=== PATIENT | male | born 1965 | race Caucasian/White ===

== ENCOUNTER 2018-09-07 11:06 | Emergency (ER) | payer OTHER ==
--- NOTE | 2018-09-07 11:08 | PDOC ---
History of Present Illness - General Chief Complaint: Back Pain Stated Complaint: MID BACK PAIN History Source: Patient Exam Limitations: No Limitations - History of Present Illness Initial Comments: 09/07/18 11:10 53 YOM with h/o HTN, chronic back pain, retinal detachments presenting with acute on chronic mid lower back pain x 4 days. Exacerbated by sitting up straight and movement/walking, now with difficulty getting up from bed/chair. With episodes of back pain, he gets shortness of breath, though not associated with chest pain, palpitations or syncope. denies radiation of pain or radicular sx down the lower extremities. a/w + tingling to left thigh. denies trauma or exertional activity has had chronic lower back pain x "long time," last had Xray and MRI imaging 1 year ago with PMD, told unremarkable and has been undergoing PT and ROM exercises. at home, he has tried diclofenac cream, lidoderm patch, and "muscle relaxer" and NSAID without relief. last took Advil last night, with minimal relief.. Denies fever, chills, chest pain, palpitation, dizziness, focal weakness, N, V , D, abdominal pain, bladder and bowel problems, urinary retention/incontinence , leg swelling, No new changes in medications. Denies spinal or recent surgical procedures. denies weight loss, appetite loss, night sweats. 09/07/18 12:13 09/07/18 12:19 09/07/18 14:18 Past History - Past Medical History Allergies/Adverse Reactions: Allergies Allergy/AdvReac Type Severity Reaction Status Date / Time No Known Allergies Allergy Unverified 09/07/18 11:07 Home Medications: Ambulatory Orders Amlodipine Besylate/Benazepril [Amlodipine-Benazepril 10-20 mg] 1 tab PO DAILY 09/07/18 Oxycodone HCl 10 mg PO QID PRN #12 tablet MDD 4 09/07/18 Review of Systems - Review of Systems Able to Perform ROS?: Yes Comments:: 09/07/18 11:08 Constitutional: no fevers or chills. no anorexia, no weight loss or night sweats. HEENT: no headache or dizziness Resp: +shortness of breath Chest: no palpitations or chest pain Abdomen: no abdominal pain, nausea, vomiting, diarrhea. Genitorurinary: no urinary retention or incontinence, no dysuria, urgency or frequency. no hematuria MUSCULOSKELETAL: No joint pain and swelling. No muscle pain/arthralgias. Back: +back pain SKIN: no redness or skin changes, no discharge, no rash. No wounds. Hematologic: no easy bruising/bleeding. NEUROLOGIC: No weakness, numbness. +tingling. No headache or dizziness Allergic/Immunologic: no allergies All other systems reviewed and negative, or as documented in HPI. 09/07/18 12:18 09/07/18 14:19 *Physical Exam - Physical Exam Comments: 09/07/18 11:10 General: Well appearing, awake and alert, NAD. HEENT: NCAT, PERRL, EOMI, clear conjunctiva, anicteric, moist mucus membranes, clear oropharynx, no oral lesions.. Neck: neck supple, FROM Resp: CTAB, normal and even respirations, no respiratory distress CVS: RRR, no murmurs, 2+ peripheral pulses throughout, no peripheral edema Abdomen: soft, NTND, no peritoneal signs. Back: ROM limited 2/2 pain. +lower thoracic and upper lumbar TTP midline, no paravertebral TTP. MSK: no edema, KELLER x4, normal bulk and tone. soft compartments. no calf tenderness. 5/5 plantar and dorsiflexion. SILT in T12-S1 distribution. no laxity at knee jt. 2+ DP pulses bilaterally. Neg SLR bilaterally. Neuro: alert, no focal neuro deficits. Psych: calm and cooperative Skin: warm and well perfused, cap refill <2 sec, normal color 09/07/18 12:21 Medical Decision Making - Medical Decision Making 09/07/18 12:22 Vital Signs Temp Pulse Resp BP Pulse Ox 98.7 F 82 18 148/93 100 09/07/18 11:07 09/07/18 11:07 09/07/18 11:07 09/07/18 11:07 09/07/18 11:07 DDx back pain: back strain, lumbago, sciatica, radiculopathy, spinal stenosis. Muscle spasm. Lumbar radiculopathy. Clinically doubt based on exam and clinical history: cord compression or cauda equina, with low suspicion and NO red flag sx such as malignancy, weight loss, trauma, fevers, IVDU, lumbar/spinal procedures, bowel and bladder incontinence/ retention, urinary sx, neurologic deficits or changes. ED course: analgesia with percocet, with no relief from traditional methods no fx, doubt injury CT T-L spine to check for degenerative disease, mass lesion, or subtle fx, with severe back pain. CT T spine no acute pathology, beam hardening artifacts, no bony abnormalities, ossification of rt paracentral region of the soft tissues. CT L spine with no acute bony abnormalities or compressions, however, disc herniations of L3-L5. 09/07/18 14:10 - on reassessment, feels much improved, able to walk/ambulate and range his back discussed results, pt aware of findings. no neuro deficits, no s/s to suggest cauda equina or cord pathology, defer further imaging and will likely need outpatient MRI imaging ortho referrals given. ROM exercises, pain control, proper rest and physical activity as tolerated f/u PMD Dr J Luis GREER in stable condition, return precautions provided. Will discharge patient with a short course of opiates. Went over the risks of the medication. Advised patient to not mix with other products containing acetaminophen, to not combine with alcohol, or other illicit drugs, to not drive or operate machinery, and to refrain from any activity that will require complete attention while taking this medication. 09/07/18 14:19 09/07/18 14:19 *DC/Admit/Observation/Transfer Diagnosis at time of Disposition: Back pain Qualifiers: Back pain location: low back pain Chronicity: unspecified Back pain laterality : unspecified Sciatica presence: without sciatica Qualified Code(s): M54.5 - Low back pain - Discharge Dispostion Disposition: HOME Condition at time of disposition: Stable Decision to Admit order: No - Prescriptions Prescriptions: Oxycodone HCl 10 mg PO QID PRN #12 tablet MDD 4 PRN Reason: Severe Pain - Referrals Referrals: Ginna Dietz [Primary Care Provider] - Javid Klein MD [Staff Physician] - Justo Blackman MD [Staff Physician] - - Patient Instructions Printed Discharge Instructions: DI for Low Back Pain Additional Instructions: 1) Please follow-up with your primary care doctor in the next 1-2 days. Please call tomorrow for for any urgent issues. 2) You were given a copy of the tests performed today. Please bring the results with you and review them with your primary care doctor. Your laboratory / imaging results were remarkable for disc herniations in your lower lumbar spine as well as no acute findings on the thoracic spine, there are beam hardening artifacts of unclear etiology which will need to be checked and followed up 3) If you have any worsening of symptoms or any other concerns please return to the ED immediately. Return if worsening symptoms including fevers, headache, vomiting, visual or hearing disturbances, abdominal pain, chest pain, shortness of breath, syncope, dehydration, inability to take things by mouth/vomiting, altered mental status, neurologic changes, numbness, tingling, weakness, falls or gait instability or worsening concerning symptoms. 4) Please continue taking your home medications as directed. your medications on discharge include the following. side effects may include upset stomach, abdominal pain, vomiting, or diarrhea. do not drink alcohol with your medications. Please take IBUPROFEN (aka MOTRIN, ADVIL, ALEVE) 400 mg and/or ACETAMINOPHEN ( aka Tylenol) 650-975 mg every 6 hours, as needed, for pain. Please do not take these medications if you have a bleeding disorder, stomach or GI ulcer problems or liver disease. Please take one tablet of OXYCODONE every 6 hours, as needed for SEVERE pain. Please do not take this medication unless you absolutely need it, it is very addictive. Please do not drive, operate heavy machinery or make important decisions while on this medication, it can cloud your judgement. orthopedic referrals also provided. - Post Discharge Activity Forms/Work/School Notes: Back to Work
[2018-09-07 11:27] VITALS: BP 148/93; PULSE 82; TEMP 98.7; BMI 31.5
== END 2018-09-07 14:20 | disposition home or self-care (01) ==
LOC: FER 11:06
DX: M54.5 Low back pain (principal); G89.29 Other chronic pain
CPT/HCPCS: 72128-TC; 72131-TC; 81003; 99282-25

== ENCOUNTER 2018-09-18 21:53 | Emergency (ER) | payer OTHER ==
[2018-09-18 21:59] VITALS: BP 135/90; PULSE 77; TEMP 97.5; BMI 31.5
[2018-09-18] MEDS ORDERED: ACETAMINOPHEN 500 MG TABLET (FP) ONE (22:08)
[2018-09-18] MEDS ORDERED: ACETAMINOPHEN 500 MG TABLET (FP) PO ONE (22:21)
--- NOTE | 2018-09-18 22:23 | PDOC ---
Documentation entered by Ange Ng SCRIBE, acting as scribe for Elda Finnegan MD. Elda Finnegan MD: This documentation has been prepared by the Berenice cross Brenda, SCRIBE, under my direction and personally reviewed by me in its entirety. I confirm that the documentation accurately reflects all work , treatment, procedures, and medical decision making performed by me. History of Present Illness - General Chief Complaint: Burn Stated Complaint: SUNBURN SINCE TUESDAY History Source: Patient Exam Limitations: No Limitations - History of Present Illness Initial Comments: 09/18/18 22:28 The patient is a 53 year old male, with a significant PMH of HTN, chronic back pain and retinal detachments who presents to the emergency department with complaints of a sunburn on chest. As per patient, he was at the pool on Tuesday (09/16/18), when he was under the sun during the day. He says that he was fine until Tuesday night and upon waking up Tuesday morning, he felt needles and pain on the skin of his chest and some parts of his abdomen. The patient denies chest pain, shortness of breath, headache and dizziness. Denies fever, chills, nausea, vomiting, diarrhea and constipation. Denies any urinary symptoms. PAST MEDICAL HISTORY: HTN, chronic back pain and retinal detachments PAST SURGICAL HISTORY: no significant history FAMILY HISTORY: no pertinent history SOCIAL HISTORY: Daily wine with meals and occasional whiskey. Pt lives with family and is employed. MEDICATIONS: reviewed ALLERGIES: As per nursing notes PCP: Ginna Dietz General: No fevers or chills, no weakness, no weight loss HEENT: No change in vision. No sore throat,. No ear pain CardioVascular: No chest pain or shortness of breath Respiratory:No cough, or wheezing. Gastrointestinal: no nausea, vomiting, diarrhea or constipation, No rectal bleeding Genitourinary: No dysuria, hematuria, or frequency Musculoskeletal: No joint or muscle pain or swelling Neurologic: No headache, vertigo, dizziness or loss of consciousness Psychiatric: nor depression Skin: (+) Sunburn on chest and right side of abdomen. No rashes or easy bruising Endocrine: no increased thirst or abnormal weight change Allergic: no skin or latex allergy All other systems reviewed and normal General: Well-nourished well-developed individual, no acute distress HEENT: Throat: Normal, tonsils normal, no erythema or exudate Neck: Supple, no meningeal signs, no lymphadenopathy Eyes::Pupils equal reactive and round, extraocular motion intact Chest: Nontender to palpation Cardiac: S1-S2 normal, regular rate and rhythm, no murmurs rubs or gallops Respiratory: Lungs clear to auscultation bilateral Abdomen: Soft, nondistended, normal bowel sounds, nontender to palpation diffusely Extremities: Warm, dry, no cyanosis, clubbing, or edema Skin:(+)mild first degree sunburn to right chest (+)right side abdomen more affected than left. No blistering. Skin is intact. No rashes Neuro: Alert and oriented x3, nonfocal exam, grossly intact, normal gait Psych: Normal mood and affect Past History - Past Medical History Allergies/Adverse Reactions: Allergies Allergy/AdvReac Type Severity Reaction Status Date / Time No Known Allergies Allergy Verified 09/18/18 21:54 Home Medications: Ambulatory Orders Amlodipine Besylate/Benazepril [Amlodipine-Benazepril 10-20 mg] 1 tab PO DAILY 09/07/18 COPD: No HTN: Yes - Surgical History Cholecystectomy: Yes - Suicide/Smoking/Psychosocial Hx Smoking History: Never smoked Hx Alcohol Use: Yes (WINE DAILY WITH MEALS AND OCCASSIONAL WHISKEY) Drug/Substance Use Hx: No *Physical Exam - Vital Signs Last Vital Signs Temp Pulse Resp BP Pulse Ox 97.5 F L 77 18 135/90 100 09/18/18 21:56 09/18/18 21:56 09/18/18 21:56 09/18/18 21:56 09/18/18 21:56 *DC/Admit/Observation/Transfer Diagnosis at time of Disposition: Sunburn of first degree - Discharge Dispostion Disposition: HOME Condition at time of disposition: Stable Decision to Admit order: No - Referrals - Patient Instructions Additional Instructions: Alternate Tylenol 2 tablets with Motrin 2 tablets every 4 hours for the pain. Try to engage in activities that will distract you from ear discomfort. Return to the emergency department immediately with ANY new, persistent or worsening symptoms. Continue any medications as previously prescribed by your physician. You should follow up with your primary doctor as soon as possible regarding today's emergency department visit. . Please make sure your doctor reviews the results of your emergency evaluation. Thank you for coming to the Emergency Department today for your care. It was a pleasure to see you today. Please note that your evaluation is INCOMPLETE until you follow-up with your doctor. - Post Discharge Activity
== END 2018-09-18 22:30 | disposition home or self-care (01) ==
LOC: FER 21:53
DX: L55.0 Sunburn of first degree (principal); I10 Essential (primary) hypertension
CPT/HCPCS: 99281-25